=== PATIENT | male | born 1995 | race Caucasian/White ===

== ENCOUNTER 2016-11-14 21:41 | Emergency (ER) | payer SELFPAY ==
[2016-11-14] MEDS ORDERED: HYDROcodone/Acetaminophen 5/325 mg Tablet ONE (21:57)
[2016-11-14] MEDS ORDERED: AMOXicillin 250 MG CAP ONE (21:58)
[2016-11-14] MEDS ORDERED: Dexamethasone 4 MG TAB ONE (21:58)
--- NOTE | 2016-11-14 22:37 | ERRECORD ---
[facility] EMERGENCY RECORD HPI COUGH (21:54 ABUS) CHIEF COMPLAINT: Patient presents for evaluation of cough, non-productive. HISTORIAN: History provided by patient, History provided by patient's spouse, 21 yr old M with no PMH who comes in with reports of cough and generalized muscle aches/pains x 1-2 days along with intermittent left ear pain. Denies any F/, N/V, rash, recent travel, but has sick contact (child at home) and family at home. LOCATION: Symptoms are generalized. QUALITY: Denies tightness, Denies wheezing, Pain is dull in nature, described as aching. SEVERITY: Currently symptoms are moderate. TIME COURSE: Gradual onset of symptoms, 2, days priror to arrival, Symptoms are worsening. ASSOCIATED WITH: No associated chest pain, Associated with chills, No associated diarrhea, No associated diaphoresis, No associated dyspnea on exertion, No associated fever, No associated nausea, No associated palpitations, No associated peripheral edema, Associated with upper respiratory infection, No associated wheezing. EXACERBATED BY: Patient's condition exacerbated by nothing. RELIEVED BY: Patient's condition relieved by nothing. ROS CONSTITUTIONAL: Negative constitutional review of systems, Historian denies chills, denies fever. (21:56 ABUS) ENT: Historian reports otalgia, reports sore throat. (21:57 ABUS) CARDIOVASCULAR: Negative cardiovascular review of systems, Historian denies chest pain, denies palpitations. (21:56 ABUS) RESPIRATORY: Historian reports cough, denies shortness of breath, denies sputum. (21:56 ABUS) GI: Negative gastrointestinal review of systems, Historian denies abdominal pain, denies constipation, denies diarrhea, denies nausea, denies vomiting. (21:56 ABUS) GENITOURINARY FEMALE: Negative genitourinary review of systems, Historian denies dysuria, denies frequency. (21:56 ABUS) SKIN: Negative skin review of systems, Historian denies rash, denies skin changes. (21:56 ABUS) NEUROLOGIC: Negative neurologic review of systems, Historian denies headache. (21:56 ABUS) HEMO/LYMPHATIC: Normal hematologic/lymphatic system review, Historian denies abnormal blood clotting. (21:56 ABUS) PAST MEDICAL HISTORY (21:49 LPOL) MEDICAL HISTORY: No past medical history, No past medical history, Flu vaccine not up to date, Tetanus immunization up to date, Pneumococcal vaccine not up to date, 03/21/16. MALE SURGICAL HISTORY: Surgical history of tonsillectomy,. PSYCHIATRIC HISTORY: : No previous psychiatric &a-1R&a+25V*p+0X*o1942R*c202B*c15G*c2P*p-0X&a-25V&a+1R Name: Nnamdi Monreal : 1995 M21 MedRec: [id number] AcctNum: [id number] Prepared: SunNov 14, 2016 22:39 by Interface Page 1 of 4 pMD [facility] EMERGENCY RECORD history. SOCIAL HISTORY: Patient currently uses tobacco, Lives at home, with family,. FAMILY HISTORY: Family istory is not significant. KNOWN ALLERGIES ALLERGIES: (Unconfirmed) LATEX ALLERGY? (Unconfirmed) NKDA (Unconfirmed) No Known Drug Allergies CURRENT MEDICATIONS No recorded medications VITAL SIGNS (21:46 LPOL) VITAL SIGNS: BP: 129/89, Pulse: 90, Resp: 20, Temp: 98.4 (Oral), O2 sat: 100 on Room Air, Time: 11/14/2016 21:46. PHYSICAL EXAM CONSTITUTIONAL: Vital signs reviewed, Patient afebrile, Pulse normal, Blood pressure normal, Respiratory rate normal, Patient appears non toxic, Patient appears pain free, Patient alert and oriented to person, place and time. (21:56 ABUS) ENT: Ear exam included findings of, left external ear with erythema, right external ear normal, tympanic membrane with bulging on the left, tympanic membrane normal on the right, Nose exam normal, no nasal deformity, no bleeding from nares, Pharynx exam normal, not injected, no swelling, symmetrical, Uvula exam normal, midline, no edema, Tonsil exam normal, not enlarged, no exudates, Mouth exam normal, mucous membranes moist, no drooling. (21:57 ABUS) NECK: Neck exam normal, Neck exam included findings of normal range of motion, Trachea midline, no meningeal signs, no cervical adenopathy, no tenderness. (21:56 ABUS) RESPIRATORY CHEST: Respiratory and chest exam normal, Respiratory exam included findings of no respiratory distress, Breath sounds clear. (21:56 ABUS) CARDIOVASCULAR: Cardiovascular assessment normal, Cardiovascular exam included findings of heart rate regular rate and rhythm, Heart sounds normal. (21:56 ABUS) ABDOMEN FEMALE: Abdominal exam included findings of abdomen nontender, Bowel sounds normal, no distension, no mass, no pulsatile masses, no peritoneal signs, no rigidity, no guarding, no rebound, Rovsing's sign absent. (21:56 ABUS) BACK: Back exam normal, Back exam included findings of normal inspection, range of motion normal, no tenderness. (21:56 ABUS) NEURO: Neuro exam normal, Neuro exam findings include patient oriented to person, place and time, Speech normal, Gait normal. (21:56 ABUS) SKIN: Skin exam normal, Skin exam included findings of skin warm, &a-1R&a+25V*p+0X*d6196E*c202B*c15G*c2P*p-0X&a-25V&a+1R Name: Nnamdi Monreal : 1995 M21 MedRec: [id number] AcctNum: [id number] Prepared: Rubina Nov 14, 2016 22:39 by Interface Page 2 of 4 pMD [facility] EMERGENCY RECORD dry, and normal in color, no rash. (21:56 ABUS) MEDICATION ADMINISTRATION SUMMARY Drug Name: Decadron oral, Dose Ordered: 8 mg, Route: Oral, Status: Given, Time: 22:02 11/14/2016, Drug Name: HYDROcodone-acetaminophen, Dose Ordered: 5/325 tab(s), Route: Oral, Status: Given, Time: 22:02 11/14/2016, Drug Name: amoxicillin, Dose Ordered: 500 mg, Route: Oral, Status: Given, Time: 22:02 11/14/2016, Detailed record available in Medication Service section. DOCTOR NOTES (21:58 ABUS) TEXT: 21 yr old M with no PMH who comes in with reports of cough and generalized muscle aches/pains x 1-2 days along with intermittent left ear pain. EXAM: Left TM redness and swelling, pharynx mild redness but no tonsilar swelling or exudates. + cough. DDX: Bronchitis, Viral URI, Flu, Sinusitis, Community Acquired Pneumonia, Allergies, Allergic Rhinitis. PLAN: Flu Test, Antitussives Final Dispo: Flu test negative. Dx: otitis media and bronchitis. D/C Home with regular follow up and return precautions. All results of testing and evaluation were shared with the patient who verbalized understanding and agreement with the plan of care. Level of Complexity / Medical Decision Making: Low Moderate. PROBLEM LIST No recorded problems DIAGNOSIS (22:26 ABUS) FINAL: PRIMARY: Otitis Media, ADDITIONAL: Bronchitis. PRESCRIPTION (22:01 ABUS) acetaminophen-codeine: TABLET : 300 mg-30 mg : ORAL : Quantity: 1 Unit: tab(s) Route: ORAL Schedule: every 6 hours PRN Dispense: 8 Unit: tab(s) May substitute. Refills: No Refills . NOTES: No Refills. amoxicillin: CAPSULE : 500 mg : ORAL : Quantity: 1 Unit: cap(s) Route: ORAL Schedule: 2 times a day Dispense: 20 Unit: cap(s) May substitute. Refills: No Refills . NOTES: ^s=No Refills No Refills. DISPOSITION PATIENT: Disposition Type: Discharge, Disposition: *Discharge Home, Condition: Good. (22:26 ABUS) &a-1R&a+25V*p+0X*t3655Q*c202B*c15G*c2P*p-0X&a-25V&a+1R Name: Nnamdi Monreal : 1995 M21 MedRec: [id number] AcctNum: [id number] Prepared: SunNov 14, 2016 22:39 by Interface Page 3 of 4 pMD [facility] EMERGENCY RECORD Patient left the department. (22:35 LPOL) Garcia: ABUS=MD Alejandra, Clarence LPOL=LORENA Robles, Jessenia &a-1R&a+25V*p+0X*k6034H*c202B*c15G*c2P*p-0X&a-25V&a+1R Name: Nnamdi Monreal : 1995 M21 MedRec: [id number] AcctNum: [id number] Prepared: SunNov 14, 2016 22:39 by Interface Page 4 of 4 pMD MTDD
--- NOTE | 2016-11-14 22:41 | PICIS ---
[facility] EMERGENCY RECORD TRIAGE (21:47 LPOL) TRIAGE NOTES: Chest pain with cough that started yesterday. (21:47 LPOL) PATIENT: NAME: Nnamdi Monreal, AGE: 21, GENDER: male, : Sun1995, TIME OF GREET: SunNov 14, 2016 21:41, PREFERRED LANGUAGE: Macedonian, ETHNICITY: Not or , FALL RISK: NO, ECODE BILLING MAP: [facility], SSN: [id number], Zip Code: [address], KG WEIGHT: 89.81, PHONE: , , , PERSON ID: [id number], PCP: No PCP. (21:47 LPOL) COMPLAINT: CHEST PAINS. (21:47 LPOL) ADMISSION: URGENCY: 4 Non Urgent, ADMISSION SOURCE: Home, TRANSPORT: Walk-in, BED: TRIAGE. (21:47 LPOL) SIRS SCORING: Heart Rate 55-109 (0), Temp range 96.8-101.1 (0), respiratory rate 12-24 (0), Mental Status altered: no (0), Infection or Suspected Infection: No. (21:49 LPOL) TRIAGE SCREENING: Patient denies suicidal ideation, Patient denies presence of domestic violence. (21:49 LPOL) TREATMENTS IN PROGRESS: Treatments given Prehospital: Hilary Vela. (21:49 LPOL) PROVIDERS: TRIAGE NURSE: Jessenia Robles RN. (21:47 LPOL) VITAL SIGNS: BP 129/89, Pulse 90, Resp 20, Temp 98.4, (Oral), O2 Sat 100, on Room Air, Time 11/14/2016 21:46. (21:46 LPOL) PREVIOUS VISIT ALLERGIES: No Known Drug Allergies. (21:47 LPOL) No Known Drug Allergies. (21:49 LPOL) KNOWN ALLERGIES ALLERGIES: (Unconfirmed) LATEX ALLERGY? (Unconfirmed) NKDA (Unconfirmed) No Known Drug Allergies CURRENT MEDICATIONS No recorded medications VITAL SIGNS (21:46 LPOL) VITAL SIGNS: BP: 129/89, Pulse: 90, Resp: 20, Temp: 98.4 (Oral), O2 sat: 100 on Room Air, Time: 11/14/2016 21:46. NURSING ASSESSMENT: RESPIRATORY /CHEST (21:50 LPOL) CONSTITUTIONAL: Gait steady, History obtained from patient, Patient appears comfortable, Patient cooperative, Patient alert, Oriented to person, place and time, Skin warm, Skin dry, Skin normal in color, Mucous membranes pink, Mucous membranes moist, Patient is well-groomed. RESPIRATORY/CHEST: Respiratory assessment findings include respiratory effort easy, Respirations regular, Conversing normally, Neck and chest exam findings include trachea midline, Chest expansion equal, Chest movement symmetrical, Associated with cough, dry. &a-1R&a+25V*p+0X*j5149F*c202B*c15G*c2P*p-0X&a-25V&a+1R Name: Nnamdi Monreal : 1995 M21 MedRec: [id number] AcctNum: [id number] Prepared: SunNov 14, 2016 22:45 by Interface Page 1 of 7 pMD [facility] EMERGENCY RECORD ENT: Congestion, bilaterally. NURSING PROCEDURE: DISCHARGE NOTE (22:33 LPOL) DISCHARGE: Patient discharged to home, ambulating without assistance, family driving, accompanied by //partner, Summary of Care printed/ provided, Patient requested and was provided an electronic copy of Discharge Instructions, Transition record given to patient, Discharge instructions given to patient, Simple or moderate discharge teaching performed, by sanna, Prescriptions given and instructions on side effects given, Name of prescription(s) given: tylenol#3, Medication reconciliation form given, Above person(s) verbalized understanding of discharge instructions and follow-up care, Patient treated and evaluated by physician. BELONGINGS: Belongings and valuables with patient upon arrival to the Emergency Department include:, Belongings remain with patient, Valuables remain with patient. ORDER DETAILS Order Name: Influenza A&B Ag Screen, Status: Active, Time: 21:51 11/14/2016, User: ABUS, - Ordered for: MD Roberts Anthony, - Entered by: MD Roberts Anthony - SunNov 14, 2016 21:51, - Quantity: 1. MEDICATION ADMINISTRATION SUMMARY Drug Name: Decadron oral, Dose Ordered: 8 mg, Route: Oral, Status: Given, Time: 22:02 11/14/2016, Drug Name: HYDROcodone-acetaminophen, Dose Ordered: 5/325 tab(s), Route: Oral, Status: Given, Time: 22:02 11/14/2016, Drug Name: amoxicillin, Dose Ordered: 500 mg, Route: Oral, Status: Given, Time: 22:02 11/14/2016, Detailed record available in Medication Service section. MEDICATION SERVICE amoxicillin: Order: amoxicillin (amoxicillin trihydrate) - Dose: 500 mg : Oral Schedule: Now Ordered by: Clarence Roberts MD Entered by: Clarence Roberts MD SunNov 14, 2016 21:54 , Acknowledged by: Jessenia Robles RN SunNov 14, 2016 21:55 Documented as given by: Jessenia Robles RN SunNov 14, 2016 22:02 Patient, Medication, Dose, Route and Time verified prior to administration. Amount given: 500 mg, Site: Medication administered P.O., Patient appears Awake and alert- acceptable, Correct patient, time, route, dose and medication confirmed prior to administration, Patient advised of actions and side-effects prior to administration, Allergies confirmed and medications reviewed prior to administration. &a-1R&a+25V*p+0X*s9260K*c202B*c15G*c2P*p-0X&a-25V&a+1R Name: Nnamdi Monreal : 1995 M21 MedRec: [id number] AcctNum: [id number] Prepared: SunNov 14, 2016 22:45 by Interface Page 2 of 7 pMD [facility] EMERGENCY RECORD : Follow Up : No signs or symptoms of allergic reaction noted. (22:32 LPOL) Decadron oral: Order: Decadron oral (dexamethasone) - Dose: 8 mg : Oral Schedule: Now Ordered by: Clarence Roberts MD Entered by: Clarence Roberts MD SunNov 14, 2016 21:51 , Acknowledged by: Jessenia Robles RN SunNov 14, 2016 21:55 Documented as given by: Jessenia Robles RN SunNov 14, 2016 22:02 Patient, Medication, Dose, Route and Time verified prior to administration. Amount given: 8 mg, Site: Medication administered P.O., Patient appears Awake and alert- acceptable, Correct patient, time, route, dose and medication confirmed prior to administration, Patient advised of actions and side-effects prior to administration, Allergies confirmed and medications reviewed prior to administration. : Follow Up : No signs or symptoms of allergic reaction noted. (22:32 LPOL) HYDROcodone-acetaminophen: Order: HYDROcodone-acetaminophen (hydrocodone bitartrate/acetaminophen) - Dose: 5/325 tab(s) : Oral Schedule: Now Ordered by: Clarence Roberts MD Entered by: Clraence Roberts MD SunNov 14, 2016 21:52 , Acknowledged by: Jessenia Robles RN SunNov 14, 2016 21:55 Documented as given by: Jessenia Robles RN Nov 14, 2016 22:02 Patient, Medication, Dose, Route and Time verified prior to administration. Site: Medication administered P.O., Patient appears Awake and alert- acceptable, Correct patient, time, route, dose and medication confirmed prior to administration, Patient advised of actions and side-effects prior to administration, Allergies confirmed and medications reviewed prior to administration. : Follow Up : Response assessment performed, No signs or symptoms of allergic reaction noted, Decreased pain. (22:33 LPOL) HPI COUGH (21:54 ABUS) CHIEF COMPLAINT: Patient presents for evaluation of cough, non-productive. HISTORIAN: History provided by patient, History provided by patient's spouse, 21 yr old M with no PMH who comes in with reports of cough and generalized muscle aches/pains x 1-2 days along with intermittent left ear pain. Denies any F/, N/V, rash, recent travel, but has sick contact (child at home) and family at home. LOCATION: Symptoms are generalized. QUALITY: Denies tightness, Denies wheezing, Pain is dull in nature, described as aching. SEVERITY: Currently symptoms are moderate. TIME COURSE: Gradual onset of symptoms, 2, days priror to arrival, Symptoms are &a-1R&a+25V*p+0X*l9186G*c202B*c15G*c2P*p-0X&a-25V&a+1R Name: Nnamdi Monrela : 1995 M21 MedRec: [id number] AcctNum: [id number] Prepared: SunNov 14, 2016 22:45 by Interface Page 3 of 7 pMD [facility] EMERGENCY RECORD worsening. ASSOCIATED WITH: No associated chest pain, Associated with chills, No associated diarrhea, No associated diaphoresis, No associated dyspnea on exertion, No associated fever, No associated nausea, No associated palpitations, No associated peripheral edema, Associated with upper respiratory infection, No associated wheezing. EXACERBATED BY: Patient's condition exacerbated by nothing. RELIEVED BY: Patient's condition relieved by nothing. ROS CONSTITUTIONAL: Negative constitutional review of systems, Historian denies chills, denies fever. (21:56 ABUS) ENT: Historian reports otalgia, reports sore throat. (21:57 ABUS) CARDIOVASCULAR: Negative cardiovascular review of systems, Historian denies chest pain, denies palpitations. (21:56 ABUS) RESPIRATORY: Historian reports cough, denies shortness of breath, denies sputum. (21:56 ABUS) GI: Negative gastrointestinal review of systems, Historian denies abdominal pain, denies constipation, denies diarrhea, denies nausea, denies vomiting. (21:56 ABUS) GENITOURINARY FEMALE: Negative genitourinary review of systems, Historian denies dysuria, denies frequency. (21:56 ABUS) SKIN: Negative skin review of systems, Historian denies rash, denies skin changes. (21:56 ABUS) NEUROLOGIC: Negative neurologic review of systems, Historian denies headache. (21:56 ABUS) HEMO/LYMPHATIC: Normal hematologic/lymphatic system review, Historian denies abnormal blood clotting. (21:56 ABUS) PAST MEDICAL HISTORY (21:49 LPOL) MEDICAL HISTORY: No past medical history, No past medical history, Flu vaccine not up to date, Tetanus immunization up to date, Pneumococcal vaccine not up to date, 03/21/16. MALE SURGICAL HISTORY: Surgical history of tonsillectomy,. PSYCHIATRIC HISTORY: : No previous psychiatric history. SOCIAL HISTORY: Patient currently uses tobacco, Lives at home, with family,. FAMILY HISTORY: Family istory is not significant. PHYSICAL EXAM CONSTITUTIONAL: Vital signs reviewed, Patient afebrile, Pulse normal, Blood pressure normal, Respiratory rate normal, Patient appears non toxic, Patient appears pain free, Patient alert and oriented to person, place and time. (21:56 ABUS) ENT: Ear exam included findings of, left external ear with erythema, right external ear normal, tympanic membrane with bulging on the left, tympanic membrane normal on the &a-1R&a+25V*p+0X*g6500G*c202B*c15G*c2P*p-0X&a-25V&a+1R Name: Nnamdi Monreal : 1995 M21 MedRec: [id number] AcctNum: [id number] Prepared: SunNov 14, 2016 22:45 by Interface Page 4 of 7 pMD [facility] EMERGENCY RECORD right, Nose exam normal, no nasal deformity, no bleeding from nares, Pharynx exam normal, not injected, no swelling, symmetrical, Uvula exam normal, midline, no edema, Tonsil exam normal, not enlarged, no exudates, Mouth exam normal, mucous membranes moist, no drooling. (21:57 ABUS) NECK: Neck exam normal, Neck exam included findings of normal range of motion, Trachea midline, no meningeal signs, no cervical adenopathy, no tenderness. (21:56 ABUS) RESPIRATORY CHEST: Respiratory and chest exam normal, Respiratory exam included findings of no respiratory distress, Breath sounds clear. (21:56 ABUS) CARDIOVASCULAR: Cardiovascular assessment normal, Cardiovascular exam included findings of heart rate regular rate and rhythm, Heart sounds normal. (21:56 ABUS) ABDOMEN FEMALE: Abdominal exam included findings of abdomen nontender, Bowel sounds normal, no distension, no mass, no pulsatile masses, no peritoneal signs, no rigidity, no guarding, no rebound, Rovsing's sign absent. (21:56 ABUS) BACK: Back exam normal, Back exam included findings of normal inspection, range of motion normal, no tenderness. (21:56 ABUS) NEURO: Neuro exam normal, Neuro exam findings include patient oriented to person, place and time, Speech normal, Gait normal. (21:56 ABUS) SKIN: Skin exam normal, Skin exam included findings of skin warm, dry, and normal in color, no rash. (21:56 ABUS) EVENTS TRANSFER: Triage to Emergency Triage. (SunNov 14, 2016 21:47 LPOL) Emergency Triage to Main ED -03. (21:47 LPOL) Removed from Emergency Main ED -03. (22:35 LPOL) DOCTOR NOTES (21:58 ABUS) TEXT: 21 yr old M with no PMH who comes in with reports of cough and generalized muscle aches/pains x 1-2 days along with intermittent left ear pain. EXAM: Left TM redness and swelling, pharynx mild redness but no tonsilar swelling or exudates. + cough. DDX: Bronchitis, Viral URI, Flu, Sinusitis, Community Acquired Pneumonia, Allergies, Allergic Rhinitis. PLAN: Flu Test, Antitussives Final Dispo: Flu test negative. Dx: otitis media and bronchitis. D/C Home with regular follow up and return precautions. All results of testing and evaluation were shared with the patient who verbalized understanding and agreement with the plan of care. Level of Complexity / Medical Decision Making: Low Moderate. PROBLEM LIST No recorded problems &a-1R&a+25V*p+0X*w9615Y*c202B*c15G*c2P*p-0X&a-25V&a+1R Name: Nnamdi Monreal : 1995 M21 MedRec: [id number] AcctNum: [id number] Prepared: Rubina Nov 14, 2016 22:45 by Interface Page 5 of 7 pMD [facility] EMERGENCY RECORD DIAGNOSIS (22:26 ABUS) FINAL: PRIMARY: Otitis Media, ADDITIONAL: Bronchitis. DISPOSITION PATIENT: Disposition Type: Discharge, Disposition: *Discharge Home, Condition: Good. (22:26 ABUS) Patient left the department. (22:35 LPOL) INSTRUCTION (22:28 ABUS) DISCHARGE: EARACHE WITH INFECTION OTITIS MEDIA ABX TX ADULT, BRONCHITIS, ABX TX (ADULT). FOLLOWUP: [facility], [facility], [address] [place] [address], [facility] [address], , Follow up with Primary Care Physician in 2-3 days. SPECIAL: Your flu test came back negative today. Please take your antibiotics as prescribed. Follow-up with your PCP or come back if you start to develop vomiting, fever, rash, or symptoms that concern you. PRESCRIPTION (22:01 ABUS) acetaminophen-codeine: TABLET : 300 mg-30 mg : ORAL : Quantity: 1 Unit: tab(s) Route: ORAL Schedule: every 6 hours PRN Dispense: 8 Unit: tab(s) May substitute. Refills: No Refills . NOTES: No Refills. amoxicillin: CAPSULE : 500 mg : ORAL : Quantity: 1 Unit: cap(s) Route: ORAL Schedule: 2 times a day Dispense: 20 Unit: cap(s) May substitute. Refills: No Refills . NOTES: ^s=No Refills No Refills. IMAGING *DISCHARGE INSTRUCTIONS RECEIPT: Image captured from scanner. (22:34 LPOL) Page 2 added. Image captured from scanner. (22:34 LPOL) *SUPPLY CHARGE SHEET: Image captured from scanner. (22:35 LPOL) ADMIN (22:28 ABUS) DIGITAL SIGNATURE: MD Roberts Anthony. RESULTS (22:26 ABUS) MICROBIOLOGY: Influenza A&B Ag Screen: [id number] Collection DT: SunNov 14, 2016 22:08, See comment below , @ ER ROOM#: ED-03 Source: Nasal swab Spec Desc: , Influenza A Antigen: NEGATIVE for the , presence of , &a-1R&a+25V*p+0X*i1432Q*c202B*c15G*c2P*p-0X&a-25V&a+1R Name: Nnamdi Monreal : 1995 M21 MedRec: [id number] AcctNum: [id number] Prepared: SunNov 14, 2016 22:45 by Interface Page 6 of 7 pMD [facility] EMERGENCY RECORD INFLUENZA A Antigen , Influenza B Antigen: NEGATIVE for the , presence of , INFLUENZA B Antigen , The rapid Flu A&B test can distinguish between influenza A , Influenza A&B Ag Screen See comment below , and B viruses, but it does not differentiate influenza , Influenza A&B Ag Screen See comment below , subtypes. , Influenza A&B Ag Screen See comment below , Influenza A&B Ag Screen See comment below , Influenza A&B Ag Screen See comment below , Influenza A&B Ag Screen See comment below , characteristics of this device with human specimens infected , Influenza A&B Ag Screen See comment below , with the 2008 H1N1 influenza virus have not been , Influenza A&B Ag Screen See comment below , established. For example: this test cannot distinguish , Influenza A&B Ag Screen See comment below , influenza infections caused by novel H1N1 influenza A , Influenza A&B Ag Screen See comment below , viruses versus seasonal influenza A viruses. , Influenza A&B Ag Screen See comment below , , Influenza A&B Ag Screen See comment below , A negative result does not exclude influenza virus , Influenza A&B Ag Screen See comment below , infection; therefore, if more conclusive testing is desired, , Influenza A&B Ag Screen See comment below , follow up confirmatory testing is warranted., Influenza A&B Ag Screen See comment below . Garcia: SEDRICK=MD Alejandra, Clarence LPOL=LORENA Robles, Jessenia &a-1R&a+25V*p+0X*z5234T*c202B*c15G*c2P*p-0X&a-25V&a+1R Name: Nnamdi Monreal : 1995 M21 MedRec: [id number] AcctNum: [id number] Prepared: Rubina Nov 14, 2016 22:45 by Interface Page 7 of 7 pMD MTDD
== END 2016-11-14 22:33 | disposition home or self-care (01) ==
LOC: MADERS 21:41
DX: J40 Bronchitis, not specified as acute or chronic (principal); H66.92 Otitis media, unspecified, left ear; F17.200 Nicotine dependence, unspecified, uncomplicated
CPT/HCPCS: 99283; J8540

== ENCOUNTER 2017-03-06 21:00 | Emergency (ER) | payer MEDICAID, SELFPAY ==
[2017-03-06] MEDS ORDERED: Diazepam 5 MG TAB ONE (21:26)
[2017-03-06] MEDS ORDERED: HYDROcodone/Acetaminophen 10/325 mg Tablet ONE (21:26)
[2017-03-06] MEDS ORDERED: AMOXicillin 250 MG CAP ONE (21:26)
[2017-03-06] MEDS ORDERED: Naproxen 500 MG TAB ONE (21:26)
== END 2017-03-06 21:45 | disposition home or self-care (01) ==
LOC: MADERS 21:00
DX: S39.012A Strain of muscle, fascia and tendon of lower back, initial encounter (principal); J02.9 Acute pharyngitis, unspecified; F17.210 Nicotine dependence, cigarettes, uncomplicated; X58.XXXA Exposure to other specified factors, initial encounter
CPT/HCPCS: 99283

== ENCOUNTER 2017-03-16 23:46 | Emergency (ER) | payer MEDICAID ==
[~2017-03-16 23:46] MED LIST: Sodium Chloride 0.9% 1,000 ML BAG ONE; Sodium Chloride 0.9% 100 ML BAG ONE
[2017-03-17] MEDS ORDERED: Ketorolac Tromethamine 30 MG/ML VIAL ONE (00:31)
[2017-03-17] MEDS ORDERED: Metoclopramide HCl 10 MG/2 ML VIAL ONE (00:31)
[2017-03-17] MEDS ORDERED: Ondansetron HCl/PF 4 MG/2 ML Vial ONE (00:31)
[2017-03-17] MEDS ORDERED: Azithromycin 500 MG VIAL ONE (00:31)
[2017-03-17] MEDS ORDERED: cefTRIAXone\\ROCEPHIN 2 GM VIAL ONE (00:31)
[2017-03-17 00:37] LABS: #Basophils 0.1 thou/uL (0.0-0.2); #Eosinphils 0.3 thou/uL (0.0-0.7); #Lymphocytes 2.6 thou/uL (1.20-3.40); #Monocytes 0.9 thou/uL (0.11-0.59); %Basophils 0.8 % (0.0-1.0); %Eosinophils 3.6 % (0.0-10.0); %Lymphocytes 28.7 % (21.0-51.0); %Monocytes 10.1 % (0.0-10.0); %Neutrophils 56.7 % (42.0-75.0); Hemoglobin 15.6 g/dL (14.0-18.0); Mean Corpuscular Hemoglobin 28.8 pg (27.0-31.0); Mean Corpuscular Volume 84.7 fl (80.0-94.0); Mean Platelet Volume 7.1 fL (7.4-10.4); Platelet Count 302 thou/uL (130-400); RBC Distribution Width 12.6 % (11.5-14.5); White Blood Cell (WBC) Count 8.9 thou/uL (4.8-10.8)
[2017-03-17 00:45] LABS: ALT (SGPT) 62 U/L (8-55); AST (SGOT) 45 U/L (5-34); Albumin 4.2 g/dL (3.5-5.0); Alkaline Phosphatase 87 U/L (40-150); Anion Gap 14 mmol/L (10-20); BUN (Urea Nitrogen) 13 mg/dL (8.9-20.6); Bilirubin, Total Less than 0.3 mg/dL (0.2-1.2); Calc. Creatinine Clearance 0 mL/min (70-130); Calcium 9.4 mg/dL (7.8-10.44); Carbon Dioxide 23 mmol/L (22-29); Chloride 108 mmol/L (98-107); Estimated GFR-MDRD Greater than 90; Globulin 3.3 g/dL (2.4-3.5); Glucose 90 mg/dL (70-105); Protein, Total 7.5 g/dL (6.0-8.3); Sodium 141 mmol/L (136-145)
--- NOTE | 2017-03-17 11:23 | RAD ---
CHEST 2 VIEWS: HISTORY: Cough. COMPARISON: 07/01/15. FINDINGS: The cardiac silhouette and pulmonary vasculature are unremarkable. The mediastinum is midline. The re is no confluent airspace consolidation, pneumothorax, or pleural fluid evident. IMPRESSION: No active cardiopulmonary abnormalities are demonstrated. POS: [facility]
== END 2017-03-17 03:01 | disposition home or self-care (01) ==
LOC: MADERS 23:46
DX: J18.9 Pneumonia, unspecified organism (principal); F17.210 Nicotine dependence, cigarettes, uncomplicated
CPT/HCPCS: 36415; 71020; 80053; 85025; 87040; 96365; 96367; 96375; J0456; J0696; J1885; J2405; J2765; J7050

== ENCOUNTER 2017-09-23 15:30 | Emergency (ER) | payer MEDICAID, SELFPAY ==
[2017-09-23] MEDS ORDERED: Ibuprofen 800 MG TAB ONE (15:56)
== END 2017-09-23 16:00 | disposition home or self-care (01) ==
LOC: MADERS 15:30
DX: G43.909 Migraine, unspecified, not intractable, without status migrainosus (principal); R04.0 Epistaxis; F17.210 Nicotine dependence, cigarettes, uncomplicated
CPT/HCPCS: 99283